=== PATIENT | male | born 1945 | race Caucasian/White ===

== ENCOUNTER 2021-03-15 17:39 | Emergency (ER) | payer BC, MEDICARE ==
[2021-03-15 18:50] VITALS: RESP 18; TEMP 98.6
[2021-03-15] MEDS ORDERED: HYDROcodone/APAP 5-325MG 1 EACH TAB PO STA (19:37)
[2021-03-15] MEDS ORDERED: DIPH,PERTUS(ACELL)TETVAC-LF 0.5 ML VIAL IM ONE (19:37)
[2021-03-15] MEDS ORDERED: ceFAZolin 1,000 MG VIAL (IM USE) IM STA (19:38)
--- NOTE | 2021-03-15 20:22 | XR ---
EXAMINATION TYPE: XR finger RT DATE OF EXAM: 03/15/2021 COMPARISON: NONE HISTORY: Trauma. Pain. TECHNIQUE: 3 views FINDINGS: There is amputation deformity of the right thumb at the level of the mid shaft of the dista l phalanx. There is no dislocation. There is no sign of a foreign body. IMPRESSION: Amputation deformity.
[2021-03-15] MEDS ORDERED: GELATIN SPONGE,ABSORB (SMALL) 1 EACH SPONGE TOPICAL STA (20:32)
--- NOTE | 2021-03-15 20:56 | ED ---
Wound/Laceration HPI - General Chief Complaint: Wound/Laceration Stated Complaint: Cut thumb off Time Seen by Provider: 03/15/21 19:25 Source: patient Mode of arrival: ambulatory Limitations: no limitations - History of Present Illness Initial Comments: 75 year-old male patient presents to the emergency department for evaluation of right thumb amputation. Patient states he was using a table saw when he slipped and cut the tip of his finger off. Injury occurred around 5:30pm. He has not taken anything for pain. He states pain is minimal. Denies history of diabetes. He is unsure when his last tetanus vaccine was given. He denies any other injuries or concerns. - Related Data Home Medications Medication Instructions Recorded Confirmed Acetaminophen Tab [Tylenol] 1,000 mg PO Q6HR 02/03/14 02/03/14 Losartan/Hydrochlorothiazide 1 each PO 02/03/14 02/03/14 [Hyzaar 100-12.5 Tablet] atenoloL [Tenormin] 25 mg PO DAILY 02/03/14 02/03/14 Previous Rx's Medication Instructions Recorded Cephalexin [Keflex] 500 mg PO Q6HR #40 cap 02/03/14 Cephalexin [Keflex] 500 mg PO BID #14 cap 03/15/21 Allergies Allergy/AdvReac Type Severity Reaction Status Date / Time No Known Allergies Allergy Verified 03/15/21 18:50 Review of Systems ROS Statement: Those systems with pertinent positive or pertinent negative responses have been documented in the HPI. ROS Other: All systems not noted in ROS Statement are negative. Past Medical History Past Medical History: Hypertension History of Any Multi-Drug Resistant Organisms: None Reported Past Surgical History: Orthopedic Surgery Additional Past Surgical History / Comment(s): RIGHT HIP AND RIGHT KNEE, AND RIGHT HAND Past Psychological History: No Psychological Hx Reported Smoking Status: Never smoker Past Alcohol Use History: Occasional Past Drug Use History: None Reported General Exam Limitations: no limitations General appearance: alert, in no apparent distress, other (This is a well- developed, well-nourished adult male patient in no acute distress. Vital signs upon presentation to 198.6F, pulse 76, respirations 18, blood pressure 149/76, pulse ox 95% on room air.) ENT exam: Present: normal exam, normal oropharynx, mucous membranes moist Respiratory exam: Present: normal lung sounds bilaterally. Absent: respiratory distress, wheezes, rales, rhonchi, stridor Course Vital Signs 03/15/21 03/15/21 18:46 22:31 Temperature 98.6 F Pulse Rate 76 80 Respiratory 18 18 Rate Blood Pressure 149/76 138/79 O2 Sat by Pulse 95 98 Oximetry Medical Decision Making - Medical Decision Making 75-year-old male patient presents to the emergency department today for evaluation of injury to the right thumb. Physical examination did reveal a distal tip amputation. X-ray was obtained and showed amputation deformity. Patient was given IM dose of F saw. Updated tetanus. Pain medication. Wound was cleansed, dressing applied. I talked to orthopedics Dr. Childers instructed to have patient call Thursday for an appointment. Patient will be given Keflex outpatient. Given Tylenol for codeine for home. Return parameters were discussed in detail. The patient and verbalized understanding and agree with this plan. Case discussed with my attending Dr. Thomas. - Radiology Data Radiology results: report reviewed, image reviewed 3 views of the right thumb are obtained. Report was reviewed in its entirety. Impression by Dr. Muhammad shows application deformity. Disposition Clinical Impression: Traumatic amputation of tip of right thumb Disposition: HOME SELF-CARE Condition: Good Instructions (If sedation given, give patient instructions): Finger Amputation (ED) Additional Instructions: Keep the dressing in place unless it becomes saturated. Take antibiotic prescription in full. Follow-up with orthopedics on Thursday, call there office Thursday for an appointment. Return to the emergency department for any new, worsening, or concerning symptoms. Follow-up through primary care physician for recheck in 1-2 days. Prescriptions: Cephalexin [Keflex] 500 mg PO BID #14 cap Is patient prescribed a controlled substance at d/c from ED?: No Referrals: Keegan Parisi MD [Primary Care Provider] - 1-2 days Martinez Childers MD [STAFF PHYSICIAN] - 1-2 days Time of Disposition: 21:50
[2021-03-15] MEDS ORDERED: ACET/COD 300 MG/30 MG STARTER PACK 6 TAB BTL PO STA (21:47)
[2021-03-15 22:32] VITALS: BP 138/79; PULSE 80
== END 2021-03-15 22:32 | disposition home or self-care (01) ==
LOC: EC 17:39
DX: S68.011A Complete traumatic metacarpophalangeal amputation of right thumb, initial encounter (principal); I10 Essential (primary) hypertension; W31.2XXA Contact with powered woodworking and forming machines, initial encounter
CPT/HCPCS: 99284; 96372; 90471; 73140; 90715; J0690

== ENCOUNTER 2022-07-29 11:20 | Day surgery (SDC) | payer MEDICARE ==
--- NOTE | 2022-07-24 14:32 | P.HPIHPCON ---
History of Present Illness H&P Date: 07/24/22 Chief Complaint: Urinary retention, BPH This is a 76-year-old male with history of urinary retention, underwent a cystoscopy urodynamic showed evidence of an obstructive prostate, evidence of detrusor function. Of note he has history of rectal cancer treated with surgical resection and radiation therapy. Option of a TURP was discussed with him. Discussed risk of bleeding, infection, strictures, persistent retention. Discussed with him the high risk of urinary incontinence given his previous history of radiation, discussed there is a significant risk of incontinence with any type of operative intervention for his prostate given his radiation to the rectum. Of note he is doing poorly with monthly catheter change due to pain in the penis with catheter insertion, he also refused CIC secondary to the pain. At this time he did agree to proceed with a TURP and is aware of the high risk of urinary incontinence Consent for Procedure: I have explained the operation/procedure to the patient, including the risks, benefits, side effects, alternative therapies (including not receiving the proposed treatment or service), the likelihood of the patient achieving his/her goals, and potential recuperation problems for the procedure/sedation/analgesia, as well as any blood products, if indicated. I also explained to the patient the risks, benefits and side effects of the alternatives, as well as the risks related to not receiving the proposed procedure, care, treatment, or services. Past Medical History Past Medical History: Hypertension, Prostate Disorder History of Any Multi-Drug Resistant Organisms: None Reported Past Surgical History: Appendectomy, Bowel Resection, Orthopedic Surgery Additional Past Surgical History / Comment(s): RIGHT HIP AND RIGHT KNEE, AND RIGHT HAND has colostomy Past Anesthesia/Blood Transfusion Reactions: No Reported Reaction Smoking Status: Former smoker Medications and Allergies Home Medications Medication Instructions Recorded Confirmed Type atenoloL [Tenormin] 25 mg PO DAILY 02/03/14 07/23/22 History Citalopram Hydrobromide [CeleXA] 10 mg PO DAILY 07/23/22 07/23/22 History Tamsulosin [Flomax] 0.4 mg PO DAILY 07/23/22 07/23/22 History Allergies Allergy/AdvReac Type Severity Reaction Status Date / Time No Known Allergies Allergy Verified 07/23/22 09:50 Surgical - Exam - General no distress, no pain - Eyes normal ocular movement, no pale - ENT normal nares, normal mucosa - Respiratory normal expansion, normal respiratory effort - Abdomen Abdomen: soft, non tender Assessment and Plan Assessment: OR TURP
[~2022-07-29 11:20] MED LIST: DEXAMETHASONE SOD PHOSPHATE 4 MG/ML 1 ML VIAL IV ONE; GENTAMICIN 120 MG in SODIUM CHLORIDE 0.9% 100 ML IVPB PRN; HYDROmorphone 0.5 MG/0.5 ML SYRINGE IVP PRN; LACTATED RINGERS 1,000 ML IV SCH; LIDOCAINE 1% (10MG/ML) FOR IV START INTRADERMA PRN; ONDANSETRON 4 MG/2 ML VIAL IVP ONE
[2022-07-29] MEDS ORDERED: PHENYLEPHRINE-0.9% NACL SYG 1,000 MCG/10 ML SYRINGE ONE (12:14)
[2022-07-29] MEDS ORDERED: fentaNYL (PF) 50 MCG/ML 2 ML AMP ONE (12:14)
[2022-07-29] MEDS ORDERED: PROPOFOL 10 MG/ML 20 ML VIAL IV ONE (12:14)
[2022-07-29] MEDS ORDERED: MIDAZOLAM 2 MG/2 ML VIAL ONE (12:14)
[2022-07-29] MEDS ORDERED: LIDOCAINE 2% INJ 20 MG/ML (2 ML VIAL) ONE (12:14)
[2022-07-29] MEDS ORDERED: SUCCINYLCHOLINE CHLORIDE 200 MG/10 ML VIAL IV ONE (12:14)
[2022-07-29] MEDS ORDERED: ePHEDrine 50 MG/ML 1 ML VIAL ONE (12:14)
--- NOTE | 2022-07-29 13:20 | P.OP ---
Date of Procedure: 07/29/22 Preoperative Diagnosis: BPH Postoperative Diagnosis: same Procedure(s) Performed: TURP ( bipolar) Implants: none Anesthesia: ROMAINA Surgeon: Kingston Collier Estimated Blood Loss (ml): 25 Pathology: other (prostate adenoma) Condition: stable Disposition: PACU Indications for Procedure: Patient brought to the operating room, general anesthesia was induced. He was prepped and draped in sterile fashion placed in a dorsal lithotomy position. Resectoscope fitted with a 25-H[place]er sheath was inserted per urethra, cystoscopy was performed which showed no abnormality within the bladder. Patient had evidenc of trilobar hyperplasia , the prostate was short but completely occlusive . Using the bipolar resectoscope the prostate was resected down to the surgical capsule, resection was carried distal to the bladder neck and stay proximal to the veru. Given patient hx of radiation for rectal cancer, some residual apical tissue was left intact. Hemostasis was achieved using cautery. Prostate chips was irrigated out using the Ellick evacuator. Repeat cystoscopy showed no injury to the ureteral orifices or the bladder, the prostate fossa was wide open. At this time the resectoscope was withdrawn and a 22-H[place] Konger Zhang was placed with a clear urine. The balloon was inflated with 30 mL. Patient tolerated the procedure well was taken to recovery in stable condition Description of Procedure: Patient brought to the operating room, general anesthesia was induced. He was prepped and draped in sterile fashion placed in a dorsal lithotomy position. Resectoscope fitted with a 25-H[place] Konger sheath was inserted per urethra, cystoscopy was performed which showed no abnormality within the bladder. Patient had enlargement of the bilateral lateral lobes, the prostate was short but occlusive . Using the bipolar resectoscope the prostate was resected down to the surgical capsule, dissection was carried distal to the bladder neck and stay proximal to the veru. Hemostasis was achieved using cautery. Prostate chips was irrigated out using the Ellick evacuator. Repeat cystoscopy showed no injury to the ureteral orifices or the bladder, the prostate fossawas wide open. At this time the resectoscope was withdrawn and a 22-H[place]er Zhang was placed with a clear urine. The balloon was inflated with 30 mL. Patient tolerated the procedure well was taken to recovery in stable condition
[2022-07-29 13:22] VITALS: TEMP 97.2
[2022-07-29 14:48] VITALS: BP 131/72; PULSE 70; RESP 15
== END 2022-07-29 14:48 | disposition home or self-care (01) ==
LOC: OR 11:20
PROVIDERS: ATTEND Urology
DX: N40.0 Benign prostatic hyperplasia without lower urinary tract symptoms (principal); Z85.048 Personal history of other malignant neoplasm of rectum, rectosigmoid junction, and anus; Z79.810 Long term (current) use of selective estrogen receptor modulators (SERMs); Z79.899 Other long term (current) drug therapy
CPT/HCPCS: 52601; J2250; J0330; J1100; J0690; J2405; J3010; J1580; J2370; J2704; J2001; 88305

== ENCOUNTER → 2023-06-23 | Outpatient (CLI) | payer MEDICARE ==
[2023-06-23 15:32] LABS: HCT 40.2 % (39.6-50.0); HGB 12.5 g/dL (13.0-17.0); MCH 27.7 pg (27.0-32.0); MCHC 31.1 g/dL (32.0-37.0); MCV 88.9 FL (80.0-97.0); Mean Platelet Volume 9.7 FL (9.5-12.2); NRBC Per 100 WBC 0 X 10*3/uL (0.00-0.01); Platelet Count 215 X 10*3/uL (140-440); RBC 4.52 X 10*6/uL (4.40-5.60); RDW 17.4 % (11.5-14.5); WBC 9.05 X 10*3/uL (4.50-10.00)
[2023-06-23 15:45] LABS: ALT 11 U/L (10-49); AST 14 U/L (14-35); Albumin/Globulin Ratio 1.33 Ratio (1.60-3.17); Alkaline Phosphatase 58 U/L (41-126); Blood Urea Nitrogen 23.1 mg/dL (9.0-27.0); Carbon Dioxide 20.8 mmol/L (21.6-31.8); Chloride 106 mmol/L (96-109); Glucose 95 mg/dL (70-110); LDL Cholesterol,Calculated 37.9 mg/dL (0.0-131.0); Potassium 4.5 mmol/L (3.5-5.5); Sodium 139 mmol/L (135-145); Total Bilirubin 0.3 mg/dL (0.3-1.2); VLDL Calculation 9.06 mg/dL (5.00-40.00)
== END | disposition home or self-care (01) ==
LOC: LABWHC1 12:35
PROVIDERS: ATTEND Internal Medicine Interventional Cardiology
DX: I10 Essential (primary) hypertension (principal); I48.11 Longstanding persistent atrial fibrillation; E78.2 Mixed hyperlipidemia
CPT/HCPCS: 36415; 80053; 80061; 85027